=== PATIENT | female | born 1985 | race Caucasian/White ===

== ENCOUNTER 2019-11-11 07:12 | Emergency (ER) | payer MEDICAID ==
[~2019-11-11] VITALS: Ht 170.2 cm; Wt 77.0 kg
[2019-11-11] MEDS ORDERED: BACITRACIN ZINC OINT UDPKT TOP ONE (07:45)
[2019-11-11] MEDS ORDERED: ACETAMINOPHEN WITH CODEINE 300/30MG TABLET PO ONE (07:45)
[2019-11-11] MEDS ORDERED: TETANUS, DIPHTHERIA, PERTUSSIS VAC/PF 0.5ML (>7YR OLD) IM ONE (07:45)
[2019-11-11 10:28] VITALS: BP 128/88
== END 2019-11-11 10:30 | disposition home or self-care (01) ==
LOC: ER 07:20
DX: S09.8XXA Other specified injuries of head, initial encounter (principal); S80.02XA Contusion of left knee, initial encounter; Y08.89XA Assault by other specified means, initial encounter; Y93.9 Activity, unspecified; Y92.9 Unspecified place or not applicable; F31.9 Bipolar disorder, unspecified
CPT/HCPCS: 73560; 81025; 90471; 90715; 99284

== ENCOUNTER 2021-07-16 18:22 | Emergency (ER) | payer MEDICAID ==
[~2021-07-16] VITALS: Ht 160 cm; Wt 73.0 kg
[2021-07-16] MEDS ORDERED: IBUPROFEN 600MG TABLET PO STA (18:43)
[2021-07-16 18:50] VITALS: BP 109/64
== END 2021-07-16 19:51 | disposition home or self-care (01) ==
LOC: ER 18:31
DX: S09.8XXA Other specified injuries of head, initial encounter (principal); Y08.89XA Assault by other specified means, initial encounter; Y93.89 Activity, other specified; Y92.89 Other specified places as the place of occurrence of the external cause; Y99.8 Other external cause status; F31.9 Bipolar disorder, unspecified; Z98.890 Other specified postprocedural states
CPT/HCPCS: 81025; 99284

== ENCOUNTER 2021-10-03 18:09 | Emergency (ER) | payer MEDICAID ==
[~2021-10-03] VITALS: Ht 167.6 cm; Wt 78.0 kg
[2021-10-03] MEDS ORDERED: AMOXICILLIN/POTASSIUM CLAVULANATE 875/125MG TAB PO ONE (19:00)
[2021-10-03] MEDS ORDERED: TETANUS, DIPHTHERIA, PERTUSSIS VAC/PF 0.5ML (>10YR OLD) IM ONE (19:00)
[2021-10-03] MEDS ORDERED: KETOROLAC 60MG/2ML VIAL IM ONE (19:00)
[2021-10-03] MEDS ORDERED: HYDROCODONE/ACETAMINOPHEN 5/325MG TABLET PO ONE (19:00)
[2021-10-03 19:44] VITALS: BP 132/78
[2021-10-03] MEDS ORDERED: IBUP-2028 MT (20:03)
[2021-10-03] MEDS ORDERED: TOPUD PO (20:03)
[2021-10-03] MEDS ORDERED: AMOX1TAB16 MT (20:03)
== END 2021-10-03 20:35 | disposition home or self-care (01) ==
LOC: ER 18:09
DX: S41.151A Open bite of right upper arm, initial encounter (principal); Z98.890 Other specified postprocedural states; W54.0XXA Bitten by dog, initial encounter; Y93.89 Activity, other specified; Y92.89 Other specified places as the place of occurrence of the external cause; Y99.8 Other external cause status
CPT/HCPCS: 73090; 73590; 90471; 90715; 96372; 99284; J1885

== ENCOUNTER 2021-10-29 12:32 | Emergency (ER) | payer MEDICAID ==
[~2021-10-29] VITALS: Ht 157.5 cm; Wt 60.0 kg
[~2021-10-29 12:32] MED LIST: AMOX1TAB16 MT; IBUP-2028 MT; TOPUD PO
[2021-10-29] MEDS ORDERED: HYDROCODONE/ACETAMINOPHEN 5/325MG TABLET PO ONE (14:45)
[2021-10-29] MEDS ORDERED: HYDR-4001 MT (17:57)
[2021-10-29 19:08] VITALS: BP 126/86
== END 2021-10-29 19:10 | disposition home or self-care (01) ==
LOC: ER 12:44
DX: S02.2XXA Fracture of nasal bones, initial encounter for closed fracture (principal); S06.9X0A Unspecified intracranial injury without loss of consciousness, initial encounter; Y08.89XA Assault by other specified means, initial encounter; Y93.89 Activity, other specified; Y92.89 Other specified places as the place of occurrence of the external cause; Y99.8 Other external cause status; F31.9 Bipolar disorder, unspecified; Z98.890 Other specified postprocedural states
CPT/HCPCS: 70486; 81025; 99284